=== PATIENT | female | born 1975 | race Hispanic/Latino ===

== ENCOUNTER 2017-07-07 16:42 | Outpatient (CLI) | payer BC | END 2017-07-07 16:43 | disposition home or self-care (01) | LOC: BICMAMMO 16:42 | PROVIDERS: ATTEND Advanced Practice Midwife | DX: Z12.31 Encounter for screening mammogram for malignant neoplasm of breast (principal) | CPT/HCPCS: 77063; 77067 ==

== ENCOUNTER 2018-09-19 15:26 | Outpatient (CLI) | payer BC ==
--- NOTE | 2018-09-19 16:01 | RAD ---
RIGHT WRIST THREE VIEWS: History: Pain in right wrist. FINDINGS: Carpals appear normally aligned. No evidence of fracture. No osseous abnormality. IMPRESSION: No acute abnormality. POS: [facility]
--- NOTE | 2018-09-19 16:07 | RAD ---
LUMBAR SPINE AP AND LATERAL VIEWS WEIGHTBEARING: Indication: Spinal stenosis. Back pain. FINDINGS: Lumbar vertebrae maintain normal height and alignment. Rudimentary ribs are seen at T12. This leaves 5 non-rib bearing vertebrae with L5 being transitional. Mild disc narrowing at L5-S1. The other disc spaces appear normally maintained. No evidence of spondylolisthesis. IMPRESSION: Transitional L5 vertebra. Lumbar spine otherwise unremarkable. POS: [facility]
== END 2018-09-19 15:27 | disposition home or self-care (01) ==
LOC: BICRAD 15:26
PROVIDERS: ATTEND Family Medicine
DX: M48.07 Spinal stenosis, lumbosacral region (principal); M25.531 Pain in right wrist
CPT/HCPCS: 72100

== ENCOUNTER 2018-09-21 16:24 | Outpatient (CLI) | payer BC ==
--- NOTE | 2018-09-21 16:42 | MMO ---
Bilateral MAMMO Bilat Screen [facility]. CLINICAL HISTORY: Patient is 43 years old and is seen for screening. The patient has no family history of breast cancer. The patient has no personal history of cancer. VIEWS: The views performed were: bilateral craniocaudal with tomosynthesis; bilateral mediolateral oblique with tomosynthesis; and bilateral exaggerated craniocaudal. FILMS COMPARED: The present examination has been compared to prior imaging studies performed at [facility] on 10/22/2008, 10/07/2012, 01/11/2015, 05/08/2016 and 07/07/2017. MAMMOGRAM FINDINGS: The breasts are heterogeneously dense, which could obscure a lesion on mammography. There are stable benign appearing calcifications seen in both breasts. There are no suspicious masses, suspicious calcifications, or new areas of architectural distortion. IMPRESSION: THERE IS NO MAMMOGRAPHIC EVIDENCE OF MALIGNANCY. A ROUTINE FOLLOW-UP MAMMOGRAM IN 1 YEAR IS RECOMMENDED. THE RESULTS OF THIS EXAM WERE SENT TO THE PATIENT. ACR BI-RADS Category 2 - Benign finding MAMMOGRAPHY NOTE: 1. A negative mammogram report should not delay a biopsy if a dominant of clinically suspicious mass is present. 2. Approximately 10% to 15% of breast cancers are not detected by mammography. 3. Adenosis and dense breasts may obscure an underlying neoplasm.
== END 2018-09-21 16:25 | disposition home or self-care (01) ==
LOC: BICMAMMO 16:24
PROVIDERS: ATTEND Family Medicine
DX: Z12.31 Encounter for screening mammogram for malignant neoplasm of breast (principal)
CPT/HCPCS: 77063; 77067

== ENCOUNTER 2018-11-23 12:00 | Outpatient (CLI) | payer BC ==
--- NOTE | 2018-11-23 12:17 | RAD ---
XR Chest Pa Lat STANDARD HISTORY: Rheumatoid arthritis with rheumatoid factor COMPARISON: None FINDINGS: The heart size is normal. The lungs are well expanded without focal areas of consolidation, pneumothorax or pleural effusions. No acute osseous abnormalities are seen. IMPRESSION: No radiographic evidence of acute cardiopulmonary process.
== END 2018-11-23 12:01 | disposition home or self-care (01) ==
LOC: BICRAD 12:00
PROVIDERS: ATTEND Internal Medicine Rheumatology
DX: M05.79 Rheumatoid arthritis with rheumatoid factor of multiple sites without organ or systems involvement (principal)
CPT/HCPCS: 71046

== ENCOUNTER 2019-02-07 16:26 | Outpatient (CLI) | payer BC ==
--- NOTE | 2019-02-07 17:40 | RAD ---
TWO VIEWS OF THE CHEST: 02/07/19 COMPARISON: None. HISTORY: Chest pain for one month. FINDINGS: Two views of the chest show normal sized cardiomediastinal silhouette. There is no evidence of consol idation, mass, or pleural effusion. The bones are unremarkable. IMPRESSION: No evidence of acute cardiopulmonary disease. POS: [facility]
== END 2019-02-07 16:27 | disposition home or self-care (01) ==
LOC: BICRAD 16:26
PROVIDERS: ATTEND Family Medicine
DX: R91.8 Other nonspecific abnormal finding of lung field (principal)
CPT/HCPCS: 71046

== ENCOUNTER 2019-11-03 15:45 | Outpatient (CLI) | payer BC ==
--- NOTE | 2019-11-03 16:19 | MMO ---
Bilateral MAMMO Bilat Screen [facility]Н. CLINICAL HISTORY: Patient is 44 years old and is seen for screening. The patient has no family history of breast cancer. The patient has no personal history of cancer. VIEWS: The views performed were: bilateral craniocaudal with tomosynthesis and bilateral mediolateral oblique with tomosynthesis. FILMS COMPARED: The present examination has been compared to prior imaging studies performed at [facility] on 01/11/2015, 05/08/2016, 07/07/2017 and 09/21/2018. This study has been interpreted with the assistance of computer-aided detection. MAMMOGRAM FINDINGS: The breasts are heterogeneously dense, which could obscure a lesion on mammography. Benign calcifications are noted bilaterally. There are no suspicious masses, suspicious calcifications, or new areas of architectural distortion. IMPRESSION: THERE IS NO MAMMOGRAPHIC EVIDENCE OF MALIGNANCY. A ROUTINE FOLLOW-UP MAMMOGRAM IN 1 YEAR IS RECOMMENDED. THE RESULTS OF THIS EXAM WERE SENT TO THE PATIENT. ACR BI-RADS Category 2 - Benign finding MAMMOGRAPHY NOTE: 1. A negative mammogram report should not delay a biopsy if a dominant of clinically suspicious mass is present. 2. Approximately 10% to 15% of breast cancers are not detected by mammography. 3. Adenosis and dense breasts may obscure an underlying neoplasm. Reported by: SALVADOR GREER MD Electonically Signed: [id number]
== END 2019-11-03 15:46 | disposition home or self-care (01) ==
LOC: BICMAMMO 15:45
PROVIDERS: ATTEND Family Medicine
DX: Z12.31 Encounter for screening mammogram for malignant neoplasm of breast (principal)
CPT/HCPCS: 77063; 77067

== ENCOUNTER 2020-04-11 14:05 | Outpatient (CLI) | payer BC ==
--- NOTE | 2020-04-11 14:43 | RAD ---
LEFT HIP 2 VIEWS: Date: 04/11/2020 HISTORY: Hip pain. FINDINGS: No signs of fracture. Joint space well preserved. No other bony or soft tissue findings. IMPRESSION: Unremarkable left hip. POS: [facility]
--- NOTE | 2020-04-11 14:44 | RAD ---
LUMBAR SPINE SERIES 3 VIEWS: Date: 04/11/2020 HISTORY: Low back pain. COMPARISON: 09/19/2018 study. FINDINGS: Vertebral bodies are normal in height. The disc spaces appear fairly well preserved with what appears to be a partial sacralization at L5. Pedicles are intact. IMPRESSION: No acute changes. Stable exam. POS: [facility]
== END 2020-04-11 14:06 | disposition home or self-care (01) ==
LOC: BICRAD 14:05
PROVIDERS: ATTEND Family Medicine
DX: M25.552 Pain in left hip (principal); M54.5 Low back pain
CPT/HCPCS: 72100

== ENCOUNTER 2020-04-11 14:09 | Outpatient (CLI) | payer BC ==
[~2020-04-11 14:09] MED LIST: Magnevist 469MG/ML 20 ML VIAL ONE
--- NOTE | 2020-04-11 15:45 | MRI ---
Brain MRI with and without contrast: 04/11/2020 COMPARISON: None HISTORY: Migraine headaches TECHNIQUE: Multiplanar multisequence MR imaging of the brain provided with and without contrast FINDINGS: The diffusion weighted imaging demonstrates no evidence for acute infarction. The axial gradient echo imaging demonstrates no evidence for intracranial hemorrhage. There are multiple scattered subcentimeter foci of increased T2 and FLAIR signal within the subcortic al white matter of bilateral frontal and parietal lobes. No midline shift or mass effect is seen. No ventricular enlargement. Sagittal FLAIR imaging demonstrates no abnormalities of the corpus callos um and no significant periventricular white matter disease is seen. The middle cerebellar peduncles appear unremarkable. Arterial flow voids at the axial level of the skull base appear grossly unremarkable on the T2-weight ed imaging. The imaged paranasal sinuses/mastoid air cells appear grossly unremarkable. Osseous marrow signal intensity appears grossly unremarkable. Postcontrast imaging demonstrates no ab normal enhancement within the brain parenchyma. IMPRESSION: Numerous nonspecific subcentimeter foci of increased T2 and FLAIR signal within the subco rtical white matter as above. Findings are prominent in a patient of this age, and can be seen on the basis of small vessel disease, lupus, Lyme disease, migraine headaches, vasculitis, demyelinating disease (multiple sclerosis), etc. Clinical correlation is required.
== END 2020-04-11 14:10 | disposition home or self-care (01) ==
LOC: BICMRI 14:09
PROVIDERS: ATTEND Nurse Practitioner Acute Care
DX: G43.109 Migraine with aura, not intractable, without status migrainosus (principal)
CPT/HCPCS: 70553

== ENCOUNTER 2020-11-03 22:57 | Emergency (ER) | payer BC ==
[2020-11-03] MEDS ORDERED: Fentanyl 100 MCG/2 ML VIAL ONE (23:20)
[2020-11-03] MEDS ORDERED: Lorazepam 2 MG/ML VIAL ONE (23:21)
[2020-11-04] MEDS ORDERED: Dextrose 50% Abboject 50 ML SYRINGE ONE
== END 2020-11-04 00:21 | disposition home or self-care (01) ==
LOC: ERS 22:57
DX: R51.9 Headache, unspecified (principal); R68.84 Jaw pain
CPT/HCPCS: 70450; 72125; 96374; 96375; J2060; J3010

== ENCOUNTER 2021-04-22 16:15 | Outpatient (CLI) | payer BC | END 2021-04-22 16:16 | disposition home or self-care (01) | LOC: BICRAD 16:15 | PROVIDERS: ATTEND Family Medicine | DX: R63.4 Abnormal weight loss (principal); D50.9 Iron deficiency anemia, unspecified | CPT/HCPCS: 71045 ==

== ENCOUNTER 2022-11-11 20:17 | Inpatient (IN) | payer BC ==
[2022-11-11] MEDS ORDERED: Ondansetron PF 4 MG/2 ML Vial ONE (20:47)
[2022-11-11] MEDS ORDERED: Morphine 4 MG/ML VIAL ONE (20:47)
[2022-11-11] MEDS ORDERED: Ondansetron ODT 4 MG TAB SL PRN (23:00)
[2022-11-11] MEDS ORDERED: Ondansetron PF 4 MG/2 ML Vial IVP PRN (23:00)
[2022-11-11] MEDS ORDERED: Acetaminophen 325 MG TAB PO PRN (23:00)
[2022-11-11] MEDS ORDERED: Calcium Carbonate 500 MG ChewTAB PO PRN (23:11)
[2022-11-11] MEDS ORDERED: Senokot S 8.6-50 MG TAB PO PRN (23:11)
[2022-11-11 23:17] VITALS: BMI 24.6
[2022-11-11 23:39] LABS: CKMB 0.9 ng/mL (0-6.6)
[2022-11-11] MEDS ORDERED: Potassium Phosphate 12 MMOL in Sodium Chloride 0.9% 100 ML IVPB SCH (23:45)
[2022-11-12 00:05] LABS: Lactic Acid 2.1 mmol/L (0.5-2.2)
[2022-11-12 02:32] LABS: #Monocytes 0.2 thou/uL (0.11-0.59); #Neutrophils 4.1 thou/uL (1.40-6.50); %Basophils 0.2 % (0.0-1.0); %Lymphocytes 20.5 % (21.0-51.0); %Monocytes 2.8 % (0.0-10.0); %Neutrophils 75.8 % (42.0-75.0); Hemoglobin 8.3 g/dL (12.0-16.0); Mean Corpuscular HGB CONC 32.7 g/dL (32.0-36.0); Mean Corpuscular Hemoglobin 26.1 pg (27.0-31.0); Mean Corpuscular Volume 79.9 fl (78.0-98.0); Mean Platelet Volume 11.2 fL (7.4-10.4); Platelet Count 147 10x3/uL (130-400); RBC Distribution Width 15.7 % (11.5-14.5); Red Blood Cell (RBC) Count 3.18 mill/uL (4.20-5.40); White Blood Cell (WBC) Count 5.4 10x3/uL (4.8-10.8)
[2022-11-12 02:57] LABS: Troponin I 0.019 ng/mL (< 0.028)
[2022-11-12 03:03] LABS: Anion Gap 10 mmol/L (10-20); BUN (Urea Nitrogen) 8 mg/dL (7.0-18.7); Calc. Creatinine Clearance 116 mL/min (70-130); Calcium 7.4 mg/dL (7.8-10.44); Carbon Dioxide 18 mmol/L (22-29); Chloride 116 mmol/L (98-107); Estimated GFR 109; Glucose 128 mg/dL (70-105); Potassium 4.1 mmol/L (3.5-5.1); Sodium 140 mmol/L (136-145)
[2022-11-12] MEDS ORDERED: Cefepime 1 GM in Sodium Chloride 0.9% 100 ML IVPB SCH (06:00)
[2022-11-12] MEDS: Famotidine 20 MG TAB PO SCH ×2 (08:35→21:35)
[2022-11-12] MEDS: Lactated Ringer's 1,000 ML IV SCH ×2 (09:46→21:36)
[2022-11-12 10:12] LABS: Magnesium 1.7 mg/dL (1.6-2.6); Phosphorus 1.9 mg/dL (2.3-4.7)
[2022-11-12] MEDS: Cefepime 2 GM in Sodium Chloride 0.9% 100 ML IVPB SCH (17:11)
[2022-11-12] MEDS: Benzonatate 100 MG CAP PO PRN (17:59)
[2022-11-12] MEDS: Acetaminophen 500 MG TAB PO PRN (22:52)
[2022-11-13 04:33] LABS: #Monocytes 0.2 thou/uL (0.11-0.59); #Neutrophils 4.3 thou/uL (1.40-6.50); %Basophils 0.3 % (0.0-1.0); %Eosinophils 0.2 % (0.0-10.0); %Lymphocytes 24.2 % (21.0-51.0); %Monocytes 3.5 % (0.0-10.0); %Neutrophils 71.3 % (42.0-75.0); Hemoglobin 8.3 g/dL (12.0-16.0); Mean Corpuscular HGB CONC 32.2 g/dL (32.0-36.0); Mean Corpuscular Hemoglobin 26.1 pg (27.0-31.0); Mean Corpuscular Volume 81.1 fl (78.0-98.0); Platelet Count 168 10x3/uL (130-400); RBC Distribution Width 15.9 % (11.5-14.5); Red Blood Cell (RBC) Count 3.18 mill/uL (4.20-5.40); White Blood Cell (WBC) Count 6.1 10x3/uL (4.8-10.8)
[2022-11-13 04:40] LABS: Manual Diff?? YES
[2022-11-13 05:02] LABS: ALT (SGPT) 109 U/L (8-55); AST (SGOT) 131 U/L (5-34); Albumin 2.8 g/dL (3.5-5.0); Alkaline Phosphatase 78 U/L (40-110); Anion Gap 11 mmol/L (10-20); BUN (Urea Nitrogen) 6 mg/dL (7.0-18.7); Bilirubin, Total 0.2 mg/dL (0.2-1.2); Calc. Creatinine Clearance 106 mL/min (70-130); Calcium 8.4 mg/dL (7.8-10.44); Carbon Dioxide 23 mmol/L (22-29); Chloride 107 mmol/L (98-107); Estimated GFR 107; Globulin 2.9 g/dL (2.4-3.5); Glucose 101 mg/dL (70-105); Magnesium 1.9 mg/dL (1.6-2.6); Phosphorus 3.8 mg/dL (2.3-4.7); Protein, Total 5.7 g/dL (6.0-8.3); Sodium 137 mmol/L (136-145)
[2022-11-13 05:32] LABS: Band 8 % (5-11); Lymphocytes 9 % (21-51); Neutrophil 83 % (42-75); Platelet Adequacy Comment Platelets Normal; Polychromasia SLIGHT = 2-3 cells HPF (0-2); Total Cell Count 100
[2022-11-13] MEDS: Lactated Ringer's 1,000 ML IV SCH (05:45)
[2022-11-13] MEDS: Cefepime 2 GM in Sodium Chloride 0.9% 100 ML IVPB SCH (05:46)
[2022-11-13] MEDS: Acetaminophen 500 MG TAB PO PRN ×2 (08:25→18:22)
[2022-11-13] MEDS: Famotidine 20 MG TAB PO SCH ×2 (08:25→20:31)
[2022-11-13] MEDS ORDERED: Magnesium 2 GM/50 ML(in water) 2 GM in Premix Bag 1 BAG IVPB SCH (09:00)
[2022-11-13] MEDS ORDERED: Potassium Phosphate 15 MMOL in Sodium Chloride 0.9% 250 ML 250 ML IVPB SCH (09:00)
[2022-11-13] MEDS ORDERED: Meropenem 1 GM in Sodium Chloride 0.9% 100 ML IVPB SCH ×2 (10:00→14:00)
[2022-11-13] MEDS: Morphine 2 MG/ML VIAL SLOW IVP PRN ×2 (10:13→20:30)
[2022-11-13 10:33] LABS: HBCM Index 0.07 S/CO (0-0.79); HBSAg Index 0.23 S/CO (0-0.99); HIV (1/2) Antibody/Antigen Non-Reactive (NonReactive); HIV 1/2 INDEX 0.08 S/CO (<1.00); Hep A IgM AB Non-Reactive S/CO (NonReactive); Hep A IgM S/CO 0.18 S/CO (0-0.79); Hep B Surf Ag Non-Reactive S/CO (NonReactive); Hep C IgG Ab Non-Reactive S/CO (NonReactive); Hep C Index 0.34 S/CO (0-0.79); Hepatitis B Core IgM Abs Non-Reactive S/CO (NonReactive)
[2022-11-13] MEDS: Meropenem 1 GM in Sodium Chloride 0.9% 100 ML IVPB SCH (18:19)
[2022-11-13] MEDS ORDERED: Ondansetron PF 4 MG/2 ML Vial IVP PRN (19:55)
[2022-11-13] MEDS ORDERED: Ondansetron ODT 4 MG TAB PO PRN (19:55)
[2022-11-13] MEDS: Benzonatate 100 MG CAP PO PRN (20:31)
[2022-11-13] MEDS: Doxycycline 100 MG in Sodium Chloride 0.9% 100 ML IVPB SCH (22:26)
[2022-11-14] MEDS: Acetaminophen 500 MG TAB PO PRN ×2 (02:26→11:35)
[2022-11-14] MEDS: Meropenem 1 GM in Sodium Chloride 0.9% 100 ML IVPB SCH ×3 (02:26→17:17)
[2022-11-14] MEDS: Benzonatate 100 MG CAP PO PRN ×3 (02:26→19:27)
[2022-11-14 04:52] LABS: #Monocytes 0.2 thou/uL (0.11-0.59); #Neutrophils 4.6 thou/uL (1.40-6.50); %Basophils 0.3 % (0.0-1.0); %Eosinophils 0.5 % (0.0-10.0); %Lymphocytes 18.6 % (21.0-51.0); %Monocytes 2.5 % (0.0-10.0); %Neutrophils 77.4 % (42.0-75.0); Hemoglobin 9.4 g/dL (12.0-16.0); Mean Corpuscular HGB CONC 32.8 g/dL (32.0-36.0); Mean Corpuscular Hemoglobin 26.2 pg (27.0-31.0); Mean Corpuscular Volume 79.9 fl (78.0-98.0); Mean Platelet Volume 10.3 fL (7.4-10.4); Platelet Count 230 10x3/uL (130-400); RBC Distribution Width 15.9 % (11.5-14.5); Red Blood Cell (RBC) Count 3.59 mill/uL (4.20-5.40); White Blood Cell (WBC) Count 5.9 10x3/uL (4.8-10.8)
[2022-11-14 05:21] LABS: ALT (SGPT) 162 U/L (8-55); AST (SGOT) 240 U/L (5-34); Albumin 3.2 g/dL (3.5-5.0); Alkaline Phosphatase 102 U/L (40-110); Anion Gap 11 mmol/L (10-20); BUN (Urea Nitrogen) 6 mg/dL (7.0-18.7); Bilirubin, Total 0.3 mg/dL (0.2-1.2); Calc. Creatinine Clearance 101 mL/min (70-130); Calcium 8.2 mg/dL (7.8-10.44); Carbon Dioxide 24 mmol/L (22-29); Chloride 104 mmol/L (98-107); Estimated GFR 103; Globulin 3.1 g/dL (2.4-3.5); Glucose 104 mg/dL (70-105); Potassium 4.3 mmol/L (3.5-5.1); Protein, Total 6.3 g/dL (6.0-8.3); Sodium 135 mmol/L (136-145)
[2022-11-14] MEDS: Doxycycline 100 MG in Sodium Chloride 0.9% 100 ML IVPB SCH ×2 (09:13→21:00)
[2022-11-14] MEDS: Famotidine 20 MG TAB PO SCH ×2 (09:14→21:01)
[2022-11-14] MEDS ORDERED: Iopamidol-370 76% 500 ML MDV (1 ML CHARGE) ONE (15:18)
[2022-11-14] MEDS: Morphine 2 MG/ML VIAL SLOW IVP PRN (21:00)
[2022-11-15] MEDS: Meropenem 1 GM in Sodium Chloride 0.9% 100 ML IVPB SCH ×3 (02:52→17:22)
[2022-11-15 05:16] LABS: #Eosinphils 0.1 thou/uL (0.0-0.7); #Monocytes 0.2 thou/uL (0.11-0.59); #Neutrophils 3.2 thou/uL (1.40-6.50); %Basophils 0.5 % (0.0-1.0); %Eosinophils 1.2 % (0.0-10.0); %Lymphocytes 38.1 % (21.0-51.0); %Monocytes 4.2 % (0.0-10.0); %Neutrophils 55.3 % (42.0-75.0); Hemoglobin 9.3 g/dL (12.0-16.0); Mean Corpuscular HGB CONC 32.6 g/dL (32.0-36.0); Mean Corpuscular Hemoglobin 25.9 pg (27.0-31.0); Mean Corpuscular Volume 79.4 fl (78.0-98.0); Mean Platelet Volume 10.8 fL (7.4-10.4); Platelet Count 284 10x3/uL (130-400); Red Blood Cell (RBC) Count 3.59 mill/uL (4.20-5.40); White Blood Cell (WBC) Count 5.7 10x3/uL (4.8-10.8)
[2022-11-15 05:41] LABS: Manual Diff?? YES
[2022-11-15 05:46] LABS: ALT (SGPT) 169 U/L (8-55); AST (SGOT) 216 U/L (5-34); Alkaline Phosphatase 95 U/L (40-110); Anion Gap 11 mmol/L (10-20); BUN (Urea Nitrogen) 7 mg/dL (7.0-18.7); Bilirubin, Total 0.2 mg/dL (0.2-1.2); CK (CPK) 69 U/L (29-168); Calc. Creatinine Clearance 104 mL/min (70-130); Calcium 8.6 mg/dL (7.8-10.44); Carbon Dioxide 23 mmol/L (22-29); Chloride 103 mmol/L (98-107); Estimated GFR 107; Globulin 3.3 g/dL (2.4-3.5); Glucose 91 mg/dL (70-105); Protein, Total 6.3 g/dL (6.0-8.3); Sodium 133 mmol/L (136-145)
[2022-11-15 06:13] LABS: Band 9 % (5-11); Burr Cells SLIGHT = 2-5 cells HPF (0-1); Eosinophils 3 % (0-10); Lymphocytes 14 % (21-51); Macrocytosis SLIGHT = 6-15 cells HPF (0-5); Monocytes 3 % (0-10); Neutrophil 71 % (42-75); Platelet Adequacy Comment Platelets Normal; Polychromasia SLIGHT = 2-3 cells HPF (0-2); Total Cell Count 101
[2022-11-15] MEDS: Acetaminophen 500 MG TAB PO PRN ×2 (08:37→19:28)
[2022-11-15] MEDS: Doxycycline 100 MG in Sodium Chloride 0.9% 100 ML IVPB SCH ×2 (08:38→20:38)
[2022-11-15] MEDS: Famotidine 20 MG TAB PO SCH ×2 (08:38→20:38)
[2022-11-15] MEDS ORDERED: Iopamidol-370 76% 500 ML MDV (1 ML CHARGE) ONE (10:41)
[2022-11-15] MEDS: Benzonatate 100 MG CAP PO PRN (20:42)
[2022-11-16] MEDS: Meropenem 1 GM in Sodium Chloride 0.9% 100 ML IVPB SCH ×2 (01:47→11:20)
[2022-11-16 04:18] LABS: Hemoglobin 9.3 g/dL (12.0-16.0); Mean Corpuscular HGB CONC 32.3 g/dL (32.0-36.0); Mean Corpuscular Hemoglobin 26.1 pg (27.0-31.0); Mean Corpuscular Volume 80.9 fl (78.0-98.0); Platelet Count 301 10x3/uL (130-400); RBC Distribution Width 16.1 % (11.5-14.5); Red Blood Cell (RBC) Count 3.56 mill/uL (4.20-5.40); White Blood Cell (WBC) Count 5.5 10x3/uL (4.8-10.8)
[2022-11-16 04:20] LABS: Delete Auto Diff?? YES; Manual Diff?? YES
[2022-11-16 04:49] LABS: Band 19 % (5-11); CellaVision Operator ID LAB.CLH1; Eosinophils 3 % (0-10); Hypochromia SLIGHT = 6-15 cells HPF (0-5); Large Platelets 5.9 % (0-5); Lymphocytes 36 % (21-51); Monocytes 3 % (0-10); Neutrophil 36 % (42-75); Platelet Adequacy Comment Platelets Normal; Polychromasia SLIGHT = 2-3 cells HPF (0-2); Reactive Lymphocytes 2 % (0-10); Total Cell Count 101
[2022-11-16 04:51] LABS: ALT (SGPT) 179 U/L (8-55); AST (SGOT) 244 U/L (5-34); Alkaline Phosphatase 91 U/L (40-110); Anion Gap 12 mmol/L (10-20); BUN (Urea Nitrogen) 8 mg/dL (7.0-18.7); Bilirubin, Total 0.3 mg/dL (0.2-1.2); Calc. Creatinine Clearance 110 mL/min (70-130); Calcium 8.7 mg/dL (7.8-10.44); Carbon Dioxide 24 mmol/L (22-29); Chloride 107 mmol/L (98-107); Estimated GFR 108; Glucose 94 mg/dL (70-105); Potassium 4.5 mmol/L (3.5-5.1); Sodium 138 mmol/L (136-145)
[2022-11-16] MEDS: Famotidine 20 MG TAB PO SCH (09:29)
[2022-11-16] MEDS: Doxycycline 100 MG in Sodium Chloride 0.9% 100 ML IVPB SCH (09:29)
[2022-11-16] MEDS: Acetaminophen 500 MG TAB PO PRN (09:33)
[2022-11-16 12:07] VITALS: BP 92/55; TEMP 97.3
[2022-11-17 12:14] LABS: A/G Ratio 0.8 (0.7-1.7); Albumin 2.5 g/dL (2.9-4.4); Alpha 1 0.3 g/dL (0.0-0.4); Alpha 2 0.7 g/dL (0.4-1.0); Beta 0.9 g/dL (0.7-1.3); Gamma 1.3 g/dL (0.4-1.8); Globulin, Total 3.3 g/dL (2.2-3.9); M-Spike Not Observed g/dL (Not Observed); Protein Electrophoresis Intrp Note: (.)
[2022-11-17 18:12] LABS: ANA Symphony (Qualitative) POSITIVE (Negative); ANA Symphony (Quantitative) 6.2 Ratio (< 0.7 Negative); CENP IgG Antibody 0.9 EliAU/mL (<7 Negative); EliA RAS New Method **** NEW METHOD ****; Jo-1 IgG Antibody 0.5 EliAU/mL (<7 Negative); RNP70 IgG Antibody 3.6 EliAU/mL (<7 Negative); Rheumatoid Factor IgM Antibody 6.9 IU/mL (<3.5 Negative); SSB/La IgG Antibody 0.7 EliAU/mL (<7 Negative); Scleroderma-70 IgG Antibody 1.4 EliAU/mL (<7 Negative); Smith D IgG Antibody 3.4 EliAU/mL (<7 Negative); dsDNA IgG Antibody 1.8 IU/mL (<10 Negative)
== END 2022-11-16 16:00 | disposition home or self-care (01) | DRG 871 ==
LOC: ERS 20:17 → 2NO 22:11
PROVIDERS: ADMIT Student in an Organized Health Care Education/Training Program; ATTEND Internal Medicine
DX: A41.50 Gram-negative sepsis, unspecified (principal); I21.A1 Myocardial infarction type 2; J15.6 Pneumonia due to other Gram-negative bacteria; E87.20 Acidosis, unspecified; J90 Pleural effusion, not elsewhere classified; E87.8 Other disorders of electrolyte and fluid balance, not elsewhere classified; R74.01 Elevation of levels of liver transaminase levels; N28.1 Cyst of kidney, acquired; Z20.822 Contact with and (suspected) exposure to COVID-19; N83.201 Unspecified ovarian cyst, right side
CPT/HCPCS: 36415; 71250; 71275; 74170; 74177; 80048; 80053; 80074; 82550; 82553; 83520; 83605; 83735; 83880; 84100; 84145; 84155; 84165; 84443; 84484; 85025; 85652; 86038; 86140; 86225; 86235; 87081; 87389; 87633; 93306; 93970; 96361; 96374; 96375; J0692; J1650; J2185; J2270; J2272; J2405; J3475; J3490; J7120; Q0162; Q9967